=== PATIENT | female | born 1995 | race Caucasian/White ===

== ENCOUNTER 2021-07-04 02:25 | Outpatient (CLI) | payer OTHER ==
[~2021-07-04 02:25] MED LIST: CITRANATAL B-C1 EAC1; MACRODANTIN100 MG
[2021-07-04] MEDS ORDERED: ECOTRIN81 MG PO (02:54)
[2021-07-04] MEDS ORDERED: NIFEDIPINE20 MG PO (02:55)
== END 2021-07-04 19:50 | disposition home or self-care (01) ==
LOC: OBS/DEL 02:25
PROVIDERS: ATTEND Obstetrics & Gynecology
DX: Z03.71 Encounter for suspected problem with amniotic cavity and membrane ruled out (principal); Z3A.30 30 weeks gestation of pregnancy